=== PATIENT | male | born 1965 | race Caucasian/White ===

== ENCOUNTER 2022-05-07 05:55 | Day surgery (SDC) | payer BC ==
[2022-05-07] MEDS ORDERED: Lactated Ringers 1,000 ML IV SCH (06:00)
[2022-05-07] MEDS ORDERED: DIPRIVAN 200 MG/20 ML IV ONE ×2 (07:48→08:04)
[2022-05-07] MEDS ORDERED: Xylocaine-Mpf 2% 5 Ml Vial ONE (07:48)
[2022-05-07] MEDS ORDERED: ATROPINE SULFATE 1MG ONE (08:01)
--- NOTE | 2022-05-07 08:37 | OP ---
SURGERY DATE/TIME: 05/07/2022 0753 PREOPERATIVE DIAGNOSIS: Rectal bleeding and history of colon polyps. POSTOPERATIVE DIAGNOSIS: Sigmoid diverticulosis otherwise normal colon. PROCEDURE: Colonoscopy. SURGEON: Dr. Dyllan Tesfaye. ANESTHESIA: MAC. Medications given by anesthesia department. HISTORY: The patient is a 56-year-old white male patient who presents now reporting that he had a couple episodes of rectal bleeding a few weeks prior to the colonoscopic evaluation. The patient reports that he also had a colonoscopy in 2016 that had colon polyps removed. The patient was felt the need to have endoscopic evaluation. He was appraised of the risks of the procedure including the risk of perforation, phlebitis, untoward reaction to medication, bleeding and missed lesions. The patient verbalized his understanding and desired to have the procedure performed. DESCRIPTION OF PROCEDURE: The patient was given the medications by the anesthesia department. He had continuous pulse oximetry, ECG monitoring, intermittent blood pressure monitoring during the examination. He is placed in the left lateral decubitus position. A digital rectal examination was performed and revealed normal anal sphincter tone, no masses and a normal prostate. The flexible Olympus pediatric colonoscope was used to intubate the rectum. A view of the colon was developed sequentially to the cecum. Upon insertion and withdrawal was noted the sigmoid diverticulosis with no active bleeding otherwise no mucosal lesions were encountered. The scope was removed from the patient who tolerated the procedure well and was sent back to OP recovery in good condition. The prep was noted to be fair to good.
[2022-05-07 08:51] VITALS: O2SAT 99
[2022-05-07 09:00] VITALS: BP 155/87
[2022-05-07 09:09] VITALS: PULSE 51
== END 2022-05-07 09:10 | disposition home or self-care (01) ==
LOC: SDC 05:55
PROVIDERS: ATTEND Family Medicine
DX: Z09 Encounter for follow-up examination after completed treatment for conditions other than malignant neoplasm (principal); Z86.010 Personal history of colon polyps; K57.90 Diverticulosis of intestine, part unspecified, without perforation or abscess without bleeding
CPT/HCPCS: J0461; J2704